=== PATIENT | female | born 2000 | race Hispanic/Latino ===

== ENCOUNTER 2020-06-06 02:25 | Emergency (ER) | payer OTHER ==
[~2020-06-06] VITALS: Ht 157.5 cm; Wt 56.2 kg
--- NOTE | 2020-06-06 02:50 | NUR ---
CALLED [facility] TO COME SEE PT SHE WANTS TO PRESS CHARGES
[2020-06-06] MEDS ORDERED: TETANUS/DIPHTHERIA TOX ADULT 0.5 ML SYR IM ONE (03:00)
--- NOTE | 2020-06-06 03:03 | Emergency Department Note ---
History of Present Illnes History of Present Illness History of Present Illness This is a 20 year old female Chief Complaint Comment STATES STARTED YEST AT 0300. WHEN SHE TAKES A DEEP BREATH IT MAKES HER CHEST HURT. 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 THE CP DID NOT GO AWAY AND FEELS SOB. PT SPEAKING IN COMPLETE SENTENCES WITHOUT SOB NOTED AT THIS TIME . Onset (how long ago): hour(s) (1) Location: upper lip Quality: dull Radiation: Reports non-radiation Severity: moderate Onset quality: sudden Duration (how long): hour(s) Timing of current episode: constant Progression: unchanged Chronicity: new Context: Denies recent illness, Denies recent surgery, Denies recent immobilization, Denies recent travel, Denies trauma/injury, Denies new med ications, Denies hx of DVT/PE, Denies non-compliance w/ medications, Denies other Relieving factors: none Exacerbating factors: none Associated symptoms: Reports denies other symptoms Treatments prior to arrival: none Past Medical/Family History Physician Review I have reviewed the patient's past medical and family history. Any updates have been documented here. Past Medical History Past Medical History: None Past Surgical History: None Social History Smoking Cessation: Never Smoker Alcohol Use: Social Review of Systems Review of Systems Constitutional: Reports no symptoms EENTM: Reports no symptoms Cardiovascular: Reports no symptoms Respiratory: Reports no symptoms Gastrointestinal: Reports no symptoms Genitourinary: Reports no symptoms Musculoskeletal: Reports no symptoms Integumentary: Reports as per HPI Neurological: Reports no symptoms Psychological: Reports no symptoms Endocrine: Reports no symptoms Hematological/Lymphatic: Reports no symptoms Physical Exam Related Data Vital signs reviewed: Yes Physical Exam CONSTITUTIONAL Constitutional: Present well-developed, Present well-nourished HENT HENT: Present normocephalic, Present atraumatic, Present oropharynx clear/moist, Present nose normal HENT L/R: Present left ext ear normal, Present right ext ear normal EYES Eyes: Reports PERRL, Reports conjunctivae normal NECK Neck: Present ROM normal PULMONARY Pulmonary: Present effort normal, Present breath sounds normal CARDIOVASCULAR Cardiovascular: Present regular rhythm, Present heart sounds normal, Present capillary refill normal, Present normal rate GASTROINTESTINAL Abdominal: Present soft, Present nontender, Present bowel sounds normal GENITOURINARY Genitourinary: Present exam deferred SKIN Skin: Present warm, Present dry, Present other ([place] upper lip) MUSCULOSKELETAL Musculoskeletal: Present ROM normal NEUROLOGICAL Neurological: Present alert, Present oriented x 3, Present no gross motor or sensory deficits PSYCHOLOGICAL Psychological: Present mood/affect normal, Present judgement normal Procedures Laceration Laceration: Laceration 1 Site: lip Side: right Size (cm): 3 Description: linear Depth: simple, single layer Skin layer closed with: other (dermabond) Assessment & Plan Medical Decision Making MDM laceration Reassessment Reassessment time: 03:01 Reassessment better Assessment & Plan Final Impression: (1) Laceration of frenum of upper lip Depart Disposition: HOME, SELF-CARE KIRBY WONG MD Jun 06, 2020 03:03
--- NOTE | 2020-06-06 03:05 | NUR ---
[facility] CALLED BACK NEEDING ADDRESS WHERE ALLEGED ASSUALT OCCURRED. PT DOES NOT ADDRESS [address] THE HOUSE IS ON. PER PD PT IS TO FIND OUT THE INFORMATION AND CALL THEM TO MAKE A REPORT AND PRESS CHARGES AT THAT TIME
[2020-06-06] MEDS ORDERED: TETANUS/DIPHTHERIA TOX ADULT 0.5 ML SYR ONE (03:24)
[2020-06-06 03:27] VITALS: BP 114/70
== END 2020-06-06 03:26 | disposition home or self-care (01) ==
LOC: FSED 03:15
DX: S01.511A Laceration without foreign body of lip, initial encounter (principal); W20.8XXA Other cause of strike by thrown, projected or falling object, initial encounter
CPT/HCPCS: 90471; 90714; 96372; 99282